=== PATIENT | male | born 1960 | race Caucasian/White ===

== ENCOUNTER → 2024-04-18 14:52 | Outpatient (REF) | payer MEDICARE, SELFPAY | LOC: HWRAD 14:52 | PROVIDERS: ATTENDING PHYSICIAN Physician Assistant Medical; FAMILY PHYSICIAN Student in an Organized Health Care Education/Training Program | DX: M79.89 Other specified soft tissue disorders (principal) | CPT/HCPCS: 73630 ==

== ENCOUNTER → 2024-06-04 11:26 | Outpatient (REF) | payer MEDICARE, SELFPAY | LOC: EMG 11:26 | PROVIDERS: ATTENDING PHYSICIAN Student in an Organized Health Care Education/Training Program | DX: R20.0 Anesthesia of skin (principal); G57.93 Unspecified mononeuropathy of bilateral lower limbs | CPT/HCPCS: 95886; 95911 ==